=== PATIENT | male | born 1975 | race Caucasian/White ===

== ENCOUNTER 2017-05-31 13:29 | Emergency (ER) | payer OTHER ==
[2017-05-31] MEDS ORDERED: PRILOSEC 20MG20 MG PO (13:34)
[2017-05-31 14:13] LABS: EOS # 0.2 (0.04-0.40); EOS % 3.2 % (0.0-4.0); HEMATOCRIT 44.6 % (42.0-52.0); HEMOGLOBIN 15.9 g/dL (13.5-18.0); MEAN CELL VOLUME 82 fl (78-100); MEAN CORPUSCULAR HEMOGLOBIN 29 pg (27-31); MEAN CORPUSCULAR HGB CONC 36 g/dL (33-37); MEAN PLATELET VOLUME 10.6 fl (7.4-10.4); MONO # 0.3 (0.20-0.80); NEU # 2.2 (1.40-6.50); PLATELET COUNT 194 K/mm3 (130-400); RED BLOOD COUNT 5.42 M/mm3 (4.20-5.60); RED CELL DISTRIBUTION WIDTH 12.2 % (11.5-14.5); WHITE BLOOD COUNT 4.7 K/mm3 (4.8-10.8)
[2017-05-31 14:19] LABS: ALBUMIN 4.2 g/dL (3.5-5.0); BUN/CREATININE RATIO 15.2 (6.0-26.0); CALCIUM 9.3 mg/dL (8.4-10.2); TOTAL BILIRUBIN 0.7 mg/dL (0.2-1.3); TOTAL PROTEIN 7.6 g/dL (6.3-8.2)
[2017-05-31 14:26] LABS: CKMB ISOENZYME 0.5 ng/mL (0.6-3.5)
[2017-05-31 14:27] LABS: TROPONIN-I < 0.03 ng/mL (0.00-0.06)
[2017-05-31 14:31] LABS: D-DIMER 0.25 mg/L FEU (0.15-0.50)
[2017-05-31 15:40] VITALS: BP 118/77
== END 2017-05-31 15:40 | disposition home or self-care (01) ==
LOC: ED 13:29
PROVIDERS: Physician Assistant
DX: R07.89 Other chest pain (principal); K21.9 Gastro-esophageal reflux disease without esophagitis; Z98.1 Arthrodesis status
CPT/HCPCS: J1885; J7030

== ENCOUNTER 2017-06-20 21:28 | Emergency (ER) | payer OTHER ==
[~2017-06-20 21:28] MED LIST: PRILOSEC 20MG20 MG PO
[2017-06-20] MEDS ORDERED: FLONASE ALLERG9.9 ML NS (21:35)
[2017-06-20] MEDS ORDERED: CLARITIN LIQUI-10 MG PO (21:35)
[2017-06-21 00:07] VITALS: BP 119/70
== END 2017-06-21 00:07 | disposition home or self-care (01) ==
LOC: ED 21:28
DX: S61.211A Laceration without foreign body of left index finger without damage to nail, initial encounter (principal); S61.213A Laceration without foreign body of left middle finger without damage to nail, initial encounter; S60.415A Abrasion of left ring finger, initial encounter; W29.3XXA Contact with powered garden and outdoor hand tools and machinery, initial encounter; Y92.008 Other place in unspecified non-institutional (private) residence as the place of occurrence of the external cause
CPT/HCPCS: A4550; A4649; J2270; J2405; J7030

== ENCOUNTER 2017-06-27 12:31 | Emergency (ER) | payer OTHER ==
[~2017-06-27 12:31] MED LIST changes: +CLARITIN LIQUI-10 MG PO; +FLONASE ALLERG9.9 ML NS
[2017-06-27 12:45] VITALS: BP 146/87
== END 2017-06-27 12:43 | disposition home or self-care (01) ==
LOC: ED 12:31
DX: Z48.02 Encounter for removal of sutures (principal)

== ENCOUNTER 2019-04-21 08:00 | Outpatient (RCR) | payer OTHER | END 2019-04-21 08:30 | disposition still patient (30) | LOC: OT 08:00 | DX: M77.9 Enthesopathy, unspecified (principal) ==